=== PATIENT | male | born 1955 | race Caucasian/White ===

== ENCOUNTER 2016-11-19 13:00 | Emergency (ER) | payer OTHER ==
[~2016-11-19] VITALS: Ht 172.7 cm; Wt 70.5 kg
[~2016-11-19 13:00] MED LIST: ALBU8.5H4 IH; ASPI-628 PO; ATEN100T PO; BUSP15TA3 PO; LAMO200T2 PO; LAMO25TA PO; LOVA40TA PO; NITR0.4T SL; ONDA4TAB6 PO; methadone liquid PO
[2016-11-19 13:03] VITALS: BP 165/98; PULSE 77; RESP 16; O2SAT 99
--- NOTE | 2016-11-19 13:40 | ED.REPORT ---
HPI-Rash / Abscess Date of Service Nov 19, 2016 ED Provider: Rigoberto Gil MD A 61 year old male presents to the ED with skin sores, having particularly big sores on his back that are very painful. For the last week, there has been yellow pus in the sores.The sores onset while he was in [place] a year ago. He was given antibiotics at onset with no relief. He returned to [place] and was given Doxycyclin from his PCP about 1.5 months ago with no relief. He has been off of the antibiotics for 2-3 weeks. He has not had the sores cultured. He reports that he has not been around other people with skin rashes. Surgical history includes through heart stents and forward and lower back surgery. He reports having had a staff infection and a spinal infection for which he was hospitalized for 2 weeks. He denies any history of diabetes. He takes Aspirin everyday. He did use illicit drugs a couple of weeks ago. He thinks that he had a tetanus shot within the last 5 years. He was driven to the ED by a friend. Nursing Notes Stated Complaint: POSSIBLE INFECTION Chief Complaint: Skin Rash/Abscess Nursing Notes Reviewed: Yes (Yarraa not reconciled) Allergies: Coded Allergies: Sulfa (Sulfonamide Antibiotics) (Verified Allergy, Severe, NAUSEA, PSYCHOSIS, 11/19/16) PANIC ATTACK, VERY NERVOUS codeine (Verified Allergy, Severe, Itching, DIZZINESS, 11/19/16) sulfamethoxazole (Verified Allergy, Severe, hallucinations (3 days to clear mentally), 11/19/16) trimethoprim (Verified Allergy, Severe, hallucinations (3 days to clear mentally), 11/19/16) Scheduled ([methadone liquid]) 65 MG PO QAM Aspirin (Aspir 81) 81 Mg Tablet. 81 MG PO DAILY Atenolol (Atenolol) 100 Mg Tablet 100 MG PO BID Buspirone (Buspirone) 15 Mg Tablet 15 MG PO BID Clindamycin (Clindamycin) 300 Mg Capsule 300 MG PO QID Lactobacillus Acidophilus (Probiotic) 1 Each Capsule 1 EACH PO DAILY Lamotrigine (Lamotrigine) 200 Mg Tablet 200 MG PO QAM Lamotrigine (Lamotrigine) 25 Mg Tablet 25 MG PO QPM Lovastatin (Lovastatin) 40 Mg Tablet 40 MG PO HS Mupirocin (Mupirocin Ointment) 22 Gm Oint...g. 1 APPLIC TOP BID Scheduled PRN Albuterol HFA (Albuterol HFA) 8.5 Gm Hfa.aer.ad 2 PUFF IH Q4 PRN PRN For Shortness of Breath Hydrocodone-Acetaminophen 5-325 mg (Hydrocodone-Acetaminophen 5-325 mg) 1 Each Tablet 1-2 TABLET PO Q6H PRN PRN For Pain Nitroglycerin SL (Nitrostat) 0.4 Mg Tab.subl 0.4 MG SL Q5MIN PRN PRN For Chest Pain Ondansetron (Zofran) 4 Mg Tablet 4 MG PO Q4H PRN PRN For Nausea General Time Seen by MD: 13:38 Chief Complaint Other (skin sores) Hx Obtained From: Patient Arrived By: Walk-in Onset Occurred: More than a week ago... (1 year ago.) Symptom Duration: Since onset Location: : Generalized Severity: Current: Moderate Severity: Maximum: Moderate Recent Healthcare: No recent doctor visit Similar Sx Previous: No Past Medical History Past Medical History Dyslipidemia Coronary artery disease. PTCA and stenting to RCA (bare metal stent) July 15 2010. PTCA and stenting to the mid segment of the circumflex artery and origin on the OM (bare metal stent) July 24 2010. Diffuse moderate disease of the left anterior descending and the right coronary artery. Hx of severe in-stent restenosis of the mid circumflex artery and this was successfully treated with one drug-eluting stent. July 01 2012. hx of tobacco abuse Bipolar disease chronic back pain Reports: Coronary artery disease, Hypertension Past Surgical History C5-6 and C6-7 Anterior Cervical Diskectomy and Fusion by Dr Tripp Jimenez on April 26, 2012. Through stents. Family History Father of COPD at 78 Reports: Coronary artery disease, Hypertension Smoking History Current Every Day Smoker Social History Alcohol Use: "Social" Drug Use: Other Other Social History: Lives alone, Local resident Ambulatory Status Independent Review of Systems Respiratory: Denies: Non-productive cough Skin: Reports Rash (Skin sores) Complete sys rev & neg: except as marked. Physical Exam Initial Vital Signs Vital Signs (First) Date Time Temp Pulse Resp B/P Pulse Ox O2 Delivery O2 Flow Rate FiO2 11/19/16 13:03 36.2 77 16 165/98 99 Room Air Initial VS: Reviewed, Vital signs normal General/Constitutional: Awake, Alert, No acute distress Patient is pleasant. Color / Condition: Positive: Lesion present... Patient has multiple lesions throughout, highly suspicious for MRSA. There is red swelling along right cheek, multile scabbed over lesions on abdomen, neck, arms, both buttocks and both lower extremities. There is a palpable abscess with surrounding erythema and cellulitis on inner left thigh which was incised and drained. There is a smaller abscess in the anterior right thigh which was incised and drained. Other abscesses appear more scabbed over and apear to be in general healing with no Incision and Drainage. MRSA is highly concerning at sites that the patient has scratched. Head / Eyes: Atraumatic, Normocephalic, PERRL, EOMI ENT: Atraumatic, Mucous membranes moist Respiratory / Chest: Atraumatic, Breath sounds NL, Breath sounds = bilat, No respiratory distress Cardiovascular: Heart rate NL, Regular rhythm, Heart sounds NL, No gallop, No murmurs, No rubs Upper Extremity / MS: Full range of motion Lower Extremity / Pelvis / MS: Full range of motion Neurologic: Oriented X3, Speech NL Neck: Full range of motion Abdomen: No guarding, No rebound Back: Full range of motion Wrist / Hand: Full range of motion Ankle / Foot: Full range of motion Interpretation & Diagnostics Lab Results Interpretation Lab Results Interpretation: Wound culture abscess left thigh pending Procedures Incision & Drainage Abscess Time: 14:29 Procedure Performed by: ED physician Consent / Setup / Site Prep: Consent from patient, Time-out performed, Hand hygiene observed, Stand sterile technique Location of Abscess: One abscess on inner left thigh and one abscess on anterior right thigh. Skin Preparation Agent: Hibiclens - Chlorhexidine Local Anesthesia: Bupivacaine 0.5% (with epi) Post-Procedure / Complications: No complications Re-Eval/Medical Decision Med Decision/Clinical Course This is a 61-year-old male presents with disseminated lesions now involving the right cheek, and left thighs the areas of most discomfort-he has scattered lesions throughout reports he was seen and treated for at [facility] a month ago. However they have gotten worse over the past few days and has increasing discomfort. He reports he occasionally gets purulent drainage. He blames them on recent chigger bites initially. Eyes fevers or chills. He has no additional complaints. Exam he is nontoxic, slightly cachectic but generally well-appearing. He does have an area of erythema above the right lip and right cheek without any area of abscess that clearly amenable to incision and drainage, and he has numerous crusted lesions about the scalp, upper extremities, lower extremities, both buttocks,-clearly locations that look amenable to scratching. The left thigh has an clear abscess with surrounding cellulitis, and has a tiny abscess on the right anterior thigh-but in most cases lesions are crusted over, and not overtly abscessed, or cellulitic. Overall I am strongly suspicious for disseminated community MRSA cutaneously in all spots in the patient's been scratching. The patient's lesion on the cheek is not ready for incision and drainage but made spontaneously form an abscess over the next several days-and the patient was informed on this. I did incise and drain the left thigh which has since surrounding cellulitis about several cc of purulent material, and unroofed the scarring. A wound culture and sent. A small abscess on the anterior right thigh was also incised and drained with less than 1 mL of purulent material obtained. The numerous lesions elsewhere-buttocks, upper extremity, lower surgeries, scalp , hands were inspected, but none of them appear to have active cellulitis or areas of purulence or induration amenable to incision and drainage, most removed over. Patient has a sulfa allergy symptoms being started on clindamycin. Hibiclens washes them and recommended daily, have also written a prescription for me process and appointment. Information about MRSA and it is contagious nature been reviewed. I written for short course of some hydrocodone. I recommended close follow-up with PCP at [facility]. Return precautions are reviewed. And lastly I have written for a probiotic for the patient to take a daily and continue after completion of the antibiotics. Patient is discharged in improved condition. Source of Hx: Old records Re-Evaluation/Progress : Time of Eval: 14:29 Re-Evaluation/Progress Note: Rechecked patient and performed I&D on leg abscesses. Differential Diagnosis: Positive: Abscess, Cellulitis, MRSA (suspected), Negative: Bartholin's abscess, Erythema multiforme, Gangrene, Henoch- Schonlein purpura, Herpes zoster, Idiopathic thromb purpura, Kawasaki's disease , Scabies, Scarlet fever Counseled Regarding: Diagnosis, Lab results, Need for follow-up, When/why to return to ED Discharge & Departure Impression: Primary Impression: Cutaneous abscess of extremity Site of cutaneous abscess of extremity: lower extremity Laterality: left Qualified Code: L02.416 - Cutaneous abscess of left lower limb Additional Impression: Cellulitis Site of cellulitis: extremity Site of cellulitis of extremity: lower extremity Laterality: left Qualified Code: L03.116 - Cellulitis of left lower limb Disposition: Home Discharge Condition All VS Reviewed: Yes Condition: Improved Additional Instructions: 1. Your multiple lesions-and these are highly suspicious for cutaneous MRSA infections. This is a type of staph that lives on the skin, and when he scratches site can be spread to a variety of locations-which is what appears to have happened here. 2. The infection on the right cheek, does not appear to be a dagoberto abscess that would be amenable to incision and drainage at this time. Continue to monitor-it is possible the swelling may get slightly worse over the next several days as an abscess forms that will require drainage, in which case you should return to the emergency department 3. The largest abscess-1 on the left thigh was drained today. There is surrounding cellulitis here. A smaller abscess on the right thigh was also drained. 4. Take the antibiotic clindamycin 300 mg 4 times a day for 14 days. Although unwilling to take the medication is frequent, it is really important to take all of the antibiotics. 5. You can also apply mupirocin ointment to the wounds twice a day. 6. Once a day I recommend using chlorhexidine soap as a body wash. This soap ( brand name hibiclens) is available at the pharmacy without a prescription. You need only a small amount applied to the skin mixed with some water each time. Let sit for 30 seconds-1 minute, then wash off. Repeat daily for the next 2 weeks. Make sure you get it on your fingers and fingernails-this will help reduce the likelihood of further spread. As discussed this particular type of staph infection can be spread to other locations, and other individuals. 7. If needed for pain take hydrocodone/APAP 5/325 1-2 tabs every 6 hours. Note : This medication contains narcotic and causes drowsiness. No driving for at least 4-6 hours after taking. 8. We sent a wound culture today next several days for results. I strongly suspect "MRSA" as discussed, and you can call [phone] in 2-3 days for results. 9. Call to schedule a recheck in [address] Noe. 10. I do recommend taking a "probiotic" daily while taking the antibiotic, and for an additional 10 days thereafter-this helps replace the normal healthy bacteria in the intestines, that can be killed as an effect of the antibiotic Referrals: Gatito Noe MD (PCP) Scribe Attestation Portions of this note were transcribed by Trace Samson. I, Dr. Gil personally performed the history, physical exam and medical decision-making; I reviewed and confirmed the accuracy of the information in the transcribed note. Signed by: Eugene Covarrubias, 11/19/2016 [id number]. copies to: Gatito Noe MD, Matthew F MD Nov 19, 2016 13:40 Trace Samson Nov 19, 2016 13:57
[2016-11-19] MEDS ORDERED: Clindamycin 150 mg/mL 2 mL Inj IM ONE (14:00)
[2016-11-19] MEDS ORDERED: oxyCODONE-Acetamin 5-325 mg Tablet PO ONE (14:00)
[2016-11-19] MEDS ORDERED: Bupivacaine 0.5%/EPI 50 mL Inj ONE (14:18)
[2016-11-19] MEDS ORDERED: CLIN-78 PO (14:45)
[2016-11-19] MEDS ORDERED: HYDR-4003 PO (14:45)
[2016-11-19] MEDS ORDERED: LACT1CAP65 PO (14:45)
[2016-11-19] MEDS ORDERED: MUPI22OI2 TOP (14:48)
== END 2016-11-19 15:25 | disposition home or self-care (01) ==
LOC: SED 13:00
DX: L02.416 Cutaneous abscess of left lower limb (principal); L03.116 Cellulitis of left lower limb; L02.415 Cutaneous abscess of right lower limb; B95.62 Methicillin resistant Staphylococcus aureus infection as the cause of diseases classified elsewhere; L98.9 Disorder of the skin and subcutaneous tissue, unspecified; E78.5 Hyperlipidemia, unspecified; I25.10 Atherosclerotic heart disease of native coronary artery without angina pectoris; I10 Essential (primary) hypertension; F17.200 Nicotine dependence, unspecified, uncomplicated; Z95.818 Presence of other cardiac implants and grafts; Z79.82 Long term (current) use of aspirin; Z88.2 Allergy status to sulfonamides; Z88.5 Allergy status to narcotic agent; Z88.1 Allergy status to other antibiotic agents

== ENCOUNTER 2016-12-30 23:59 | Emergency (ER) | payer OTHER ==
[~2016-12-30 23:59] MED LIST changes: +CLIN-78 PO; +HYDR-4003 PO; +LACT1CAP65 PO; +MUPI22OI2 TOP
[2016-12-31 00:03] VITALS: BP 155/95; PULSE 84; RESP 20; O2SAT 98
--- NOTE | 2016-12-31 00:22 | ED.REPORT ---
HPI-Overdose/Alcohol Toxicity Date of Service Dec 31, 2016 ED Provider: Twan Kim MD Pt is a 61 y.o. male who presents to the ED via EMS after a IV heroin overdose prior to arrival. Per EMS it was initially reported as CPR in progress. Pt was administered Narcan intranasally and 2mg IM on scene. EMS also states that the pt's friends poured ice water on him prior to their arrival in an attempt to "revive" him. Upon arrival to the ED the pt was alert and oriented. Pt endorses to IV heroin, meth, and ETOH use. He states that he took a "dime bag" of heroin and 3 beers. 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 Pt denies suicidal ideation. Nursing Notes Stated Complaint: HEROIN OD Nursing Notes Reviewed: Yes Allergies: Coded Allergies: Sulfa (Sulfonamide Antibiotics) (Verified Allergy, Severe, NAUSEA, PSYCHOSIS, 11/19/16) PANIC ATTACK, VERY NERVOUS codeine (Verified Allergy, Severe, Itching, DIZZINESS, 11/19/16) sulfamethoxazole (Verified Allergy, Severe, hallucinations (3 days to clear mentally), 11/19/16) trimethoprim (Verified Allergy, Severe, hallucinations (3 days to clear mentally), 11/19/16) Scheduled ([methadone liquid]) 65 MG PO QAM Aspirin (Aspir 81) 81 Mg Tablet.dr 81 MG PO DAILY Atenolol (Atenolol) 100 Mg Tablet 100 MG PO BID Buspirone (Buspirone) 15 Mg Tablet 15 MG PO BID Clindamycin (Clindamycin) 300 Mg Capsule 300 MG PO QID Lactobacillus Acidophilus (Probiotic) 1 Each Capsule 1 EACH PO DAILY Lamotrigine (Lamotrigine) 200 Mg Tablet 200 MG PO QAM Lamotrigine (Lamotrigine) 25 Mg Tablet 25 MG PO QPM Lovastatin (Lovastatin) 40 Mg Tablet 40 MG PO HS Mupirocin (Mupirocin Ointment) 22 Gm Oint...g. 1 APPLIC TOP BID Scheduled PRN Albuterol HFA (Albuterol HFA) 8.5 Gm Hfa.aer.ad 2 PUFF IH Q4 PRN PRN For Shortness of Breath Hydrocodone-Acetaminophen 5-325 mg (Hydrocodone-Acetaminophen 5-325 mg) 1 Each Tablet 1-2 TABLET PO Q6H PRN PRN For Pain Nitroglycerin SL (Nitrostat) 0.4 Mg Tab.subl 0.4 MG SL Q5MIN PRN PRN For Chest Pain Ondansetron (Zofran) 4 Mg Tablet 4 MG PO Q4H PRN PRN For Nausea General Time Seen by Provider: 00:10 Chief Complaint Drug overdose Modifying Factors: Accidental Initial Psychiatric Assessment: Deny suicidal intent/plan Hx Obtained From: Patient, EMS Arrived By: Ambulance Onset Occurred: Just prior to arrival Past Medical History Past Medical History Dyslipidemia Coronary artery disease. PTCA and stenting to RCA (bare metal stent) July 15 2010. PTCA and stenting to the mid segment of the circumflex artery and origin on the OM (bare metal stent) July 24 2010. Diffuse moderate disease of the left anterior descending and the right coronary artery. Hx of severe in-stent restenosis of the mid circumflex artery and this was successfully treated with one drug-eluting stent. July 01 2012. hx of tobacco abuse Bipolar disease chronic back pain Reports: Coronary artery disease, Hypertension Past Surgical History C5-6 and C6-7 Anterior Cervical Diskectomy and Fusion by Dr Tripp Jimenez on April 26, 2012. Through stents. Family History Father of COPD at 78 Reports: Coronary artery disease, Hypertension Smoking History Current Every Day Smoker Social History Alcohol Use: "Social" Drug Use: Other Other Social History: Lives alone, Local resident Ambulatory Status Independent Review of Systems Drug overdose, heroin Psychiatric: Denies: Homicidal ideation, Suicidal ideation Complete sys rev & neg: except as marked. Physical Exam Initial Vital Signs Vital Signs (First) Date Time Temp Pulse Resp B/P Pulse Ox O2 Delivery O2 Flow Rate FiO2 12/31/16 00:03 36.4 84 20 155/95 98 Room Air Initial VS: Reviewed, Vital signs abnormal Head / Eyes: Atraumatic, Normocephalic Extremities: Vascular intact, Neuro intact General/Constitutional: Well hydrated, Not toxic appearing Alertness: Positive: Sleeping but arousable Appearance / Presentation: Positive: Uncomfortable Respiratory / Chest: Atraumatic, Breath sounds NL, Breath sounds = bilat, No respiratory distress Cardiovascular: Heart rate NL, Regular rhythm, Heart sounds NL Abdomen: Atraumatic, Soft, No distention Neurologic: Oriented X3 Speech: Positive: Slurred Psychiatric: Not suicidal, Not homicidal Re-Eval/Medical Decision Med Decision/Clinical Course 61-year-old male who states that he has not used any heroin for over a month. He took his usual dose and had a clinical overdose requiring CPR and rescue breathing by his family, intranasal Narcan by fire personnel followed by IM Narcan by paramedics. He has now recovered fully with no apparent adverse effects from this episode. He declines treatment at this time. He was given a prepack of IM Narcan. He is fully aware of the severity and potential lethality of his situation. Source of Hx: Old records Re-Evaluation/Progress : Time of Eval: 00:27 Re-Evaluation/Progress Note: Physical exam performed. Discussed with pt possible need for additional Narcan, pt understands and agrees with plan. Counseled Regarding: Diagnosis, Need for follow-up, When/why to return to ED Discharge & Departure Impression: Primary Impression: Overdose of heroin Encounter type: initial encounter Injury intent: accidental or unintentional Qualified Code: T40.1X1A - Poisoning by heroin, accidental ( unintentional), initial encounter )( Condition at Discharge: No danger to self, No danger to others, No suicidal ideation, No homicidal ideation Disposition: Home Discharge Condition All VS Reviewed: Yes Condition: Improved Patient Instructions: Naloxone (Injection) Additional Instructions: You overdosed on heroin. You were clinically but revived with CPR and naloxone (Narcan). Obviously, heroin is not safe but even more concerning is the issue with people cutting it with fentanyl. This makes it even more toxic. Stay safe and do not use. Call me at [phone] between 9 PM and 6 AM for the next couple of nights if you have any questions or concerns. I have sent home naloxone (Narcan) with you. It is available for use for any situation for anyone with opiate overdose. Referrals: Gatito Noe MD (PCP) Scribe Attestation Portions of this note were transcribed by Kvng Owen. I, Dr. Kim personally performed the history, physical exam and medical decision-making; I reviewed and confirmed the accuracy of the information in the transcribed note. Signed by: Eugene Finnegan, 12/31/16 and 1522 copies to: Gatito Noe MD, Howard L MD Dec 31, 2016 00:22 KVNG OWEN Dec 31, 2016 00:26
[2016-12-31 00:30] VITALS: BP 143/98; PULSE 88; RESP 18; O2SAT 98
[2016-12-31] MEDS ORDERED: _Naloxone 0.4 mg/1 mL 2 Vial Kit (FOR INJECTION) IM PRN (00:35)
[2016-12-31 03:15] VITALS: BP 108/77; PULSE 85; RESP 18; O2SAT 96
== END 2016-12-31 03:13 | disposition home or self-care (01) ==
LOC: EDUNIT# 23:59 → SED 23:59 → EDBD 23:59 → SED 12-31 03:13
DX: T40.1X1A Poisoning by heroin, accidental (unintentional), initial encounter (principal); Y93.89 Activity, other specified; Y92.89 Other specified places as the place of occurrence of the external cause; Y99.8 Other external cause status; I11.9 Hypertensive heart disease without heart failure; I25.10 Atherosclerotic heart disease of native coronary artery without angina pectoris; F31.9 Bipolar disorder, unspecified; F17.200 Nicotine dependence, unspecified, uncomplicated; Z79.82 Long term (current) use of aspirin; Z88.2 Allergy status to sulfonamides; Z88.5 Allergy status to narcotic agent; Z88.8 Allergy status to other drugs, medicaments and biological substances